=== PATIENT | male | born 1975 | race Two or more races ===

== ENCOUNTER 2023-06-21 13:18 | Emergency (ER) | payer OTHER ==
[~2023-06-21] VITALS: Ht 177.8 cm; Wt 108.9 kg
[2023-06-21] MEDS ORDERED: COZAAR25 MG PO (13:45)
[2023-06-21] MEDS ORDERED: ATORVASTATIN CA10 MG PO (13:45)
[2023-06-21 14:44] LABS: URINE APPEARANCE Clear; URINE BILIRRUBIN Negative (NEGATIVE); URINE BLOOD Negative; URINE COLOR Yellow; URINE GLUCOSE Negative (NEGATIVE); URINE LEUKOCYTE Negative; URINE NITRATE Negative; URINE PROTEIN Negative (NEGATIVE)
[2023-06-21 14:45] LABS: URINE RBC 5.6 uL (0.0-20.8); URINE WBC 3.8 uL (0.0-23.2)
[2023-06-21 14:46] LABS: URINE EPITHELIAL CELLS 1.3 uL (0.0-38.8)
[2023-06-21] MEDS ORDERED: PHENAZOPYRIDINE HCL 100 MG TABLET PO ONE (15:30)
[2023-06-21] MEDS ORDERED: TAMSULOSIN HCL 0.4 MG CAP PO ONE (15:30)
[2023-06-21] MEDS ORDERED: ENALAPRILAT DIHYDRATE 1.25 MG/ML VIAL IV ONE (16:30)
[2023-06-21] MEDS ORDERED: PYRIDIUM100 M1 PO (18:30)
[2023-06-21] MEDS ORDERED: TAMS0.4C PO (18:30)
== END 2023-06-21 18:51 ==
LOC: ER 13:18
PROVIDERS: Emergency Medicine
DX: R39.12 Poor urinary stream (principal); I10 Essential (primary) hypertension; E78.49 Other hyperlipidemia

== ENCOUNTER 2023-06-22 08:41 | Emergency (ER) | payer OTHER ==
[~2023-06-22] VITALS: Ht 177.8 cm; Wt 108.9 kg
[~2023-06-22 08:41] MED LIST: ATORVASTATIN CA10 MG PO; COZAAR25 MG PO; PYRIDIUM100 M1 PO; TAMS0.4C PO
[2023-06-22] MEDS ORDERED: CEFTRIAXONE SODIUM 2,000 MG VIAL IM ONE (09:15)
[2023-06-22] MEDS ORDERED: TAMSULOSIN HCL 0.4 MG CAP PO ONE (09:15)
[2023-06-22] MEDS ORDERED: MORPHINE SULFATE 4 MG/ML CARTRIDGE IV ONE (09:15)
[2023-06-22] MEDS ORDERED: FAMOtidine 10 MG/ML (4ML VIAL) IV ONE (09:45)
[2023-06-22 09:47] LABS: HEMOGLOBIN 14.3 g/dL (13-16.00); MEAN CELL VOLUME 94.1 fL (80.0-100.00); PLATELET COUNT 321 K/uL (150-450); RED BLOOD COUNT 4.47 M/uL (4.00-6.00); RED CELL DISTRIBUTION WIDTH 13.6 % (11.5-14.5)
[2023-06-22 09:55] LABS: ERYTHROCYTE SEDIMENTATION RATE 7 mm/hr
[2023-06-22 10:09] LABS: PH,URINE 5.5 (5.0-8.0); URINE APPEARANCE Clear; URINE BILIRRUBIN Small (NEGATIVE); URINE BLOOD Negative; URINE COLOR Orange; URINE GLUCOSE Negative (NEGATIVE); URINE LEUKOCYTE Small; URINE NITRATE Positive; URINE PROTEIN Trace (NEGATIVE)
[2023-06-22 10:13] LABS: URINE BACTERIA 25.1 uL (0.0-1933); URINE EPITHELIAL CELLS 13.1 uL (0.0-38.8); URINE RBC 8.7 uL (0.0-20.8); URINE WBC 22.8 uL (0.0-23.2)
[2023-06-22 10:15] LABS: ALBUMIN 4.2 gm/dL (3.4-5.0); BILIRUBIN TOTAL 0.91 mg/dL (0.3-1.2); CALCIUM 9.6 mg/dL (8.5-10.1); CREATININE SERUM 0.96 mg/dL (0.70-1.30); GFR 83.96; GLOBULINA 3.4 G/DL (2.4-3.5); POTASSIUM 4.13 mEq/L (3.5-5.1); TOTAL PROTEIN 7.6 gm/dL (6.4-8.2)
== END 2023-06-22 11:41 | disposition home or self-care (01) ==
LOC: ER 08:42
PROVIDERS: General Practice
DX: N48.1 Balanitis (principal); N20.0 Calculus of kidney; I10 Essential (primary) hypertension; E78.00 Pure hypercholesterolemia, unspecified; F32.89 Other specified depressive episodes; N39.0 Urinary tract infection, site not specified